=== PATIENT | male | born 1975 | race American Indian/Alaskan Native ===

== ENCOUNTER 2020-09-13 00:13 | Emergency (ER) | payer OTHER ==
[2020-09-13 00:39] VITALS: BP 197/117
[2020-09-13] MEDS ORDERED: hydrALAZINE 25 MG TAB PO ONE (00:43)
[2020-09-13] MEDS ORDERED: METOCLOPRAMIDE 10 MG TAB PO ONE (01:04)
[2020-09-13] MEDS ORDERED: amLODIPine 5 MG TAB PO ONE (01:04)
[2020-09-13] MEDS ORDERED: ACETAMINOPHEN 325 MG TAB PO ONE (01:04)
--- NOTE | 2020-09-13 01:06 | Event Note ---
Date: 09/13/20 The patient was evaluated in the emergency department for symptoms described in the history of present illness. He/she was evaluated in the context of the global COVID-19 pandemic, which necessitated consideration that the patient might be at risk for infection with the virus that causes COVID-19. Institutional protocols and algorithms that pertain to the evaluation of patients at risk for COVID-19 are in a state of rapid change based on information released by regulatory bodies including the CDC and federal and state organizations. These policies and algorithms were followed during the patient's care in the emergency department. Please note that these policies, procedures and recommendations changed on a rapid basis. Medical screening examination: 45-year-old gentleman with a history of "high blood pressure", diagnosed in [facility], does not have a local primary care doctor, does not take any current antihypertensive therapy, presents to the ER today with a complaint of shortness of breath, headache, "I just feel off." Patient denies chest pain at this time. Headache is not described as sudden or thunderclap in nature, not maximal in intensity, and not described as the worst headache of his life. Patient denies loss of taste and smell. He has not received a Covid vaccination. He walks with a steady gait, and has a GCS of 15. His EKG is abnormal, sinus rhythm, 68 bpm, left axis deviation, left anterior fascicular block, incomplete right bundle branch block, and left ventricular hypertrophy. There is nonspecific ST abnormality, V1, V2, lead I and aVL, without obvious reciprocal changes. These are most likely changes secondary to hypertension. The patient's history and EKG are not consistent with acute STEMI. He will be treated appropriately for his headache, obtain x-ray of the chest, noncontrast CT scan of the brain, appropriate laboratory studies and reassess.
[2020-09-13 01:42] LABS: Amorphous Crystals,Urine 1+; Bacteria,Urine 1+ /HPF (Negative); Bilirubin,Urine NEG (Negative); Blood,Urine NEG (Negative); Color,Urine Yellow (Yellow); Mucus,Urine FEW /HPF; Protein,Urine <15 mg/dL mg/dL (Negative); Urobilinogen,Urine < 2.0 mg/dL (<2.0)
[2020-09-13 01:49] LABS: Amphetamine Screen,Urine PRESUMPTIVE NEGATIVE; Benzodiazepines Screen,Urine PRESUMPTIVE NEGATIVE; Cannabinoid Screen,Urine PRESUMPTIVE POSITIVE; Cocaine Screen,Urine PRESUMPTIVE NEGATIVE; Methadone Screen,Urine PRESUMPTIVE NEGATIVE; Opiate Screen,Urine PRESUMPTIVE NEGATIVE
[2020-09-13 02:00] LABS: Basophils # (Auto) 0.1 K/mm3 (0.0-0.1); Basophils % (Auto) 0.9 % (0.0-1.8); Eosinophils # (Auto) 0.2 K/mm3 (0.0-0.4); Eosinophils % (Auto) 2.7 % (0.0-4.3); Hematocrit 43.4 % (35.5-45.6); Hemoglobin 14.7 gm/dl (11.8-15.2); Lymphocytes # (Auto) 1.7 K/mm3 (1.2-5.4); Lymphocytes % (Auto) 28.2 % (13.4-35.0); Mean Corpuscular HGB Conc 34 % (32-34); Mean Corpuscular Volume 88 fl (84-94); Monocytes # (Auto) 0.5 K/mm3 (0.0-0.8); Monocytes % (Auto) 8.5 % (0.0-7.3); Platelet Count 276 K/mm3 (140-440); Red Blood Count 4.94 M/mm3 (3.65-5.03); Red Cell Distribution Width 14.7 % (13.2-15.2)
[2020-09-13 02:27] LABS: Alanine Aminotransferase 21 units/L (7-56); Albumin 4.5 g/dL (3.9-5); BUN/Creatinine Ratio 9; Blood Urea Nitrogen 12 mg/dL (9-20); Calcium 9.7 mg/dL (8.4-10.2); Hemolysis Index 6
--- NOTE | 2020-09-13 02:48 | XRay Report ---
CHEST 2 VIEWS 0124 INDICATION / CLINICAL INFORMATION: dyspnea COMPARISON: None available. FINDINGS: SUPPORT DEVICES: None. HEART / MEDIASTINUM: No significant abnormality. LUNGS / PLEURA: No significant pulmonary or pleural abnormality. No pneumothorax. ADDITIONAL FINDINGS: No significant additional findings. IMPRESSION: No significant acute abnormality Signer Name: Nahid Flores MD Signed: 09/13/2020 2:43 AM Workstation Name: [id number]
--- NOTE | 2020-09-14 10:35 | Electrocardiograph Report ---
[facility] Test Date: 2020-09-13 Test Time: 00:55:15 Pat Name: REYES AVENDAÑO Department: Room: Gender: M Delivery Lead: : 1975 Requested By: ED DOC Order Number: [id number] Reading MD: Miguel Ángel Cali Measurements Intervals Rogers Rate: 68 P: 73 OK: 180 QRS: -64 QRSD: 98 T: 39 QT: 415 QTc: 443 Interpretive Statements Sinus rhythm Probable left atrial enlargement Left axis deviation Left ventricular hypertrophy Nonspecific ST segment abnormality No previous ECG available for comparison Electronically Signed On 09-14-2020 10:35:10 EDT by Miguel Ángel Cali
== END 2020-09-13 01:30 | disposition left against medical advice (07) ==
LOC: ED 00:13
DX: R11.0 Nausea (principal); R00.0 Tachycardia, unspecified; Z53.21 Procedure and treatment not carried out due to patient leaving prior to being seen by health care provider
CPT/HCPCS: 36415; 71046; 80053; 80307; 81001; 82550; 83735; 84484; 85025; 87086; 93005